=== PATIENT | male | born 1970 ===

== ENCOUNTER 2020-08-30 09:59 | Outpatient (CLI) | payer OTHER | END 2020-08-30 10:04 | disposition home or self-care (01) | LOC: SONOGRAMA 09:59 | DX: K76.0 Fatty (change of) liver, not elsewhere classified (principal); R10.84 Generalized abdominal pain ==

== ENCOUNTER 2020-09-01 10:31 | Inpatient (IN) | payer OTHER ==
[~2020-09-01] VITALS: Ht 170.2 cm; Wt 94.3 kg
--- NOTE | 2020-09-01 10:34 | NUR ---
PACIENTE ALERTA Y ORIENTADO POR SRAVANTHI. REFIERE MAVERICK SEMANA CON DOLOR ABDOMINAL LADO IZQ.
--- NOTE | 2020-09-01 13:35 | NUR ---
SE ORIENTA SOBRE TRATAMIENTO ORDENADO, EL CUAL REFIERE ENTENDER. SE COLECTAN MUESTRAS Y SE CANALIZA PTE CON MEDIDAS ASEPTICAS. PEND. CT SE ENTREGA CONTRASTE PO.
--- NOTE | 2020-09-01 18:45 | NUR ---
PTE RE-EVALUADO POR . SE ORIENTA SOBRE ORDENES DE [place] REFIERE COMPRENDER. SE ADMINISTRAN MEDICAMENTOS, BAJO MEDIDAS ASEPTICAS. PTE REHUSA MEDICAMENTO DEMEROL 50MG, SE NOTIFICA A . SE ORIENTA PTE SOBRE INSERCION DE TUBO NASOGASTRICO [place] REFIERE QUE NO DESEA EL MISMO. SE RE-ORIENTA SOBRE LA IMPORTANCIA, SIN EMBARGO, CONTINUA REHUSANDO. SE NOTIFICA A .
[2020-09-14] MEDS ORDERED: FLAGYL500MG PO (11:16)
[2020-09-14] MEDS ORDERED: CIPRO500 MG PO (11:16)
== END 2020-09-14 13:57 | disposition home or self-care (01) | DRG 391 ==
LOC: ER 10:31 → SURH 20:43 → SEC-K 20:43 → SURH 09-02 13:23
PROVIDERS: ADMIT Surgery; ATTEND Surgery
PROC: BW2110Z Computerized Tomography (CT Scan) of Abdomen and Pelvis using Low Osmolar Contrast, Unenhanced and Enhanced (ICD-10-PCS; 2020-09-01)
PROC: 02HV33Z Insertion of Infusion Device into Superior Vena Cava, Percutaneous Approach (ICD-10-PCS; 2020-09-02)
PROC: 0W9F30Z Drainage of Abdominal Wall with Drainage Device, Percutaneous Approach (ICD-10-PCS; principal; 2020-09-05)
PROC: BW2110Z Computerized Tomography (CT Scan) of Abdomen and Pelvis using Low Osmolar Contrast, Unenhanced and Enhanced (ICD-10-PCS; 2020-09-11)
DX: K57.20 Diverticulitis of large intestine with perforation and abscess without bleeding (principal); K65.1 Peritoneal abscess; R82.71 Bacteriuria; R82.81 Pyuria; R31.21 Asymptomatic microscopic hematuria; I10 Essential (primary) hypertension

== ENCOUNTER 2020-11-02 09:02 | Day surgery (SDC) | payer OTHER ==
[~2020-11-02 09:02] MED LIST: CIPRO500 MG PO; FLAGYL500MG PO
== END 2020-11-02 15:30 | disposition home or self-care (01) ==
LOC: AMB-ENDOS 09:02
PROVIDERS: ATTEND Surgery
DX: D12.3 Benign neoplasm of transverse colon (principal); D12.5 Benign neoplasm of sigmoid colon; K64.8 Other hemorrhoids; Z20.822 Contact with and (suspected) exposure to COVID-19

== ENCOUNTER 2020-12-06 14:56 | Inpatient (IN) | payer OTHER ==
[~2020-12-06] VITALS: Ht 170.2 cm; Wt 88.5 kg
[2020-12-13] MEDS ORDERED: PERCOCET 5-3251 EACH PO (06:23)
[2020-12-13] MEDS ORDERED: TAMS0.4C PO (06:24)
== END 2020-12-13 14:55 | disposition home or self-care (01) | DRG 330 ==
LOC: EDSTATUS 15:30 → ADM 15:30 → O/R 12-08 05:33 → SURH 12-08 05:33 → SURG 12-08 13:08 → SURH 12-08 15:30
PROVIDERS: ADMIT Surgery; ATTEND Surgery
PROC: 0DTN4ZZ Resection of Sigmoid Colon, Percutaneous Endoscopic Approach (ICD-10-PCS; 2020-12-08)
PROC: 3E0F7SF Introduction of Other Gas into Respiratory Tract, Via Natural or Artificial Opening (ICD-10-PCS; 2020-12-08)
PROC: 0DTP4ZZ Resection of Rectum, Percutaneous Endoscopic Approach (ICD-10-PCS; principal; 2020-12-08 08:30)
PROC: BT4JZZZ Ultrasonography of Kidneys and Bladder (ICD-10-PCS; 2020-12-10)
PROC: BT00ZZZ Plain Radiography of Bladder (ICD-10-PCS; 2020-12-12)
DX: K57.20 Diverticulitis of large intestine with perforation and abscess without bleeding (principal); N17.8 Other acute kidney failure; D64.9 Anemia, unspecified